=== PATIENT | male | born 1985 | race Caucasian/White ===

== ENCOUNTER 2023-11-26 11:06 | Emergency (ER) | payer OTHER, SELFPAY ==
[2023-11-26 11:07] VITALS: BP 159/107
--- NOTE | 2023-11-26 11:37 | ED.GENMED ---
History of Present Illness
General
Chief Complaint: Abdominal Pain
Time Seen by Provider: 11/26/23 11:15
Travel History
Have you had any contact with someone who has COVID-19?: No
Do you have any symptoms of coronavirus? Fever > 100 degrees, chills, cough, shortness of breath, sore throat, loss of taste or smell, muscle aches, or headache?: No
History of Present Illness
History of Present Illness:
37 yo male w/ hx of anxiety and OCD presents to the Emergency Department for evaluation of generalized abd pain x 3 days. Reports waxing and waning pain, no obvious provoking/palliating factors. Location of pain varies. Poor appetite for 2-3 days.
No fevers, chills, sweats. Did have 'dry heaves' this AM. Notes that due to a MSK hip injury, he had been taking 650mg asa 3-4 times per day for 2-3 weeks. No hx of abd surgeries.
Review of Systems
Review of Systems
Allergies reviewed?: Yes
All Other Systems: ROS reviewed and negative except as documented in HPI and ROS
Phy Exam
Physical Exam
Physical Exam:
GEN: Well appearing, NAD, WDWN
Eyes: PERRLA, EOMs intact, no scleral icterus
HENT: NCAT, oral mucosa moist
Lungs: CTAB, no wheezes, rales, rhonchi, normal chest wall excursion
Cardiac: RRR, no M/R/G, no peripheral edema. Radial pulses 2+ bilat
Abdomen: S, NT, ND, NABS, no masses or hepatosplenomegaly
Neuro: AO x 3
MSK: No gross deformity or ecchymosis. No edema. No digital clubbing
Skin: No rashes, petechiae. Normal color, no pallor or jaundice.
Psych: Calm, cooperative, proper hygiene
Course
Orders/Labs/Results
Orders:
Orders
11/26/23 11:40
Famotidine [Pepcid] 20 mg IV NOW STA
Pantoprazole [Protonix IV] 40 mg IV NOW STA
11/26/23 11:55
Complete Blood Count/With Diff Urgent
Comprehensive Metabolic Panel Urgent
Lipase Urgent
11/26/23 12:56
US Abdomen Complete/Upper Urgent
Comment:
Reason For Exam: upper abd pain
11/26/23 14:35
Urinalysis Reflex To Culture Urgent
Date Specimen was Collected: 11/26/23
Time Specimen was Collected: 14:34
Urine Microscopic Reflex Cult Urgent
Urine Culture Urgent
AVRIL Source: U
Specimen Description:
Date Specimen was Collected: 11/26/23
Time Specimen was Collected: 14:34
11/26/23 14:43
0.9% Sodium Chloride 1000 ml [Nss] 1,000 ml IV BOLUS
Abnormal Lab Results
11/26/23 11/26/23
11:55 14:35
MCH 31.1 H pg
(27.0-31.0)
Absolute Monos (auto) 1.1 H 10^3/uL
(0.1-0.6)
Monocytes % 11.1 H %
(1.7-9.3)
Urine Ketones 3+ A
(Negative)
Urine Bilirubin 1+ A
(Negative)
Leukocyte Esterase Rfl Trace A
(Negative)
Urine Bacteria (Reflex) Moderate A
(Negative)
11/26/23 11:55
11/26/23 11:55
Vital Signs
Initial and Last Documented VS:
Initial Vital Signs
Temp Pulse Resp BP Pulse Ox
100.3 F 91 18 159/107 98
11/26/23 11:07 11/26/23 11:07 11/26/23 11:07 11/26/23 11:07 11/26/23 11:07
Last Documented Vital Signs
Temp Pulse Resp BP Pulse Ox
100.2 F 74 18 159/107 97
11/26/23 14:50 11/26/23 14:50 11/26/23 14:50 11/26/23 11:07 11/26/23 14:50
MDM/Problems Addressed
MDM/Problems Addressed:
The true cause of the pt's symptoms is not clear. High suspicion for gastritis/PUD on the basis of heavy asa use recently, however this would not explain the mild L hydronephrosis or bacteruia. He is noted to have low grade fever without
leukocytosis. No focal RLQ tenderness concerning for appendicitis. Will treat empirically w/ a course of abx, PPI for presumed gastritis. ED return parameters discussed
*Critical Care Note
Total Time (30-74mins, 75-104mins- exclusive of procedures): Not Applicable
ED Attending Note
-
Portions of this chart may have been created with voice recognition software.� Occasional wrong word or��sound alike� substitutions may have occurred due to the inherent limitations of voice recognition software.
Discharge Plan
Departure
Patient Disposition: Home (Routine Discharge)
Date of Disposition: 11/26/23
Time of Disposition: 15:17
Patient with high blood pressure during this ER visit?: No
Discharge Problem:
Bacteriuria with pyuria, Hydronephrosis, left, Gastritis
Instructions: Gastritis (DC)
Prescriptions:
New
sulfamethoxazole-trimethoprim [Bactrim DS] 800-160 mg tablet
1 tab PO BID 7 Days Qty: 14 0RF
pantoprazole [Protonix] 40 mg tablet,delayed release (DR/EC)
40 mg PO DAILY Qty: 14 0RF
Referrals:
NONE,* [Family Provider] -
Interventions
Interventions:
*Risk Screen - Suicide Last Done: 11/26/23 15:32
*General Assessment Last Done: 11/26/23 15:32
*Neglect/Abuse Screening Last Done: 11/26/23 15:32
*ED COVID-19 Vaccine History Last Done: 11/26/23 11:07
NQ-Vigclp-Taztbwqgtx Assessment Last Done: 11/26/23 14:48
Discharge Date and Time
Print Language: IRISH
[2023-11-26] MEDS: PROTONIX IV 40 MG IV (11:55)
[2023-11-26] MEDS: PEPCID 20 MG IV (11:55)
[2023-11-26 12:14] LABS: % Basophils 0.4 % (0-2); % Immature Granulocytes 0.2 % (0-0.5); % Monocytes 11.1 % (1.7-9.3); % Neutrophils 65.3 % (42.2-75.2); Absolute Eosinophils 0.1 10^3/uL (0-0.7); Absolute Lymphocytes 2.1 10^3/uL (1.2-3.4); Absolute Monocytes 1.1 10^3/uL (0.1-0.6); Absolute Neutrophils 6.2 10^3/uL (1.4-6.5); Hematocrit 44.6 % (39.0-52.0); Hemoglobin 15.7 g/dL (13.0-18.0); Mean Corp Hgb Conc. 35.2 g/dL (33.0-37.0); Mean Corpuscular Hgb 31.1 pg (27.0-31.0); Mean Corpuscular Volume 88.3 fL (80.0-94.0); Nucleated Red Blood Cells % 0 % (-); Platelet Count 212 10^3/uL (130-400); Red Blood Cell Count 5.05 10^6/uL (4.70-6.10); Red Cell Dist. Width 12.1 % (11.5-14.5); White Blood Cell Count 9.6 10^3/uL (4.8-10.8)
[2023-11-26 12:29] LABS: ALT (SGPT) 31 U/L (0-50); AST (SGOT) 26 U/L (17-59); Alkaline Phosphatase 70 U/L (38-126); Blood Urea Nitrogen 9 mg/dl (9-20); Calcium 9.1 mg/dl (8.4-10.2); Carbon Dioxide 27 mmol/L (22-30); Chloride 103 mmol/L (98-107); Glucose 97 mg/dl (70-99); Lipase 43 U/L (23-300); Potassium 3.8 mmol/L (3.5-5.1); Sodium 138 mmol/L (135-145); Total Bilirubin 0.7 mg/dl (0.2-1.3); Total Protein 6.9 g/dl (6.3-8.2); eGFR > 60.00
[2023-11-26] MEDS: NSS 1000 IV (14:47)
[2023-11-26 14:53] LABS: Urine Albumin Negative (Neg - Trace); Urine Bilirubin 1+ (Negative); Urine Character Clear (Clear); Urine Color Yellow; Urine Glucose Negative (Negative); Urine Ketone 3+ (Negative); Urine Leukocyte Trace (Negative); Urine Nitrite Negative (Negative); Urine Occult Blood Negative (Negative); Urine Urobilinogen Negative (Neg - 1+)
[2023-11-26 15:13] LABS: Urine Bacteria Moderate (Negative); Urine Mucus Many; Urine Red Blood Cell 0-2 /HPF (0-2)
== END 2023-11-26 17:31 | disposition home or self-care (01) ==
LOC: EMR 11:06
PROVIDERS: Physician Assistant; EMERGENCY PHYSICIAN Emergency Medicine
DX: R82.81 Pyuria (principal); R82.71 Bacteriuria; N13.30 Unspecified hydronephrosis; K29.00 Acute gastritis without bleeding; R11.0 Nausea; F42.9 Obsessive-compulsive disorder, unspecified; F41.9 Anxiety disorder, unspecified
CPT/HCPCS: 99284; 96374; 96375; 96361; 76700; 80053; 81003; 81015; 83690; 85025; 87086

== ENCOUNTER 2024-06-08 16:35 | Emergency (ER) | payer OTHER, SELFPAY ==
[2024-06-08 16:45] VITALS: BP 158/112
--- NOTE | 2024-06-08 19:44 | ED.GENMED ---
History of Present Illness
General
Chief Complaint: Musculo-Skeletal Complaint
Time Seen by Provider: 06/08/24 19:30
History of Present Illness
History of Present Illness:
Patient is a 38-year-old male who is otherwise healthy presenting to the emergency department left hip pain. Patient states that back in October he felt like he pulled a muscle in his left hip and has been having occasional issues with limping. About
5 days ago he slipped on ice. He said during that event his left leg was stretched and he was able to pull his leg back in. He did not fall. He states that since then has been having pain to the left hip. It is mostly noticeable when he is going
from sitting to standing as well as when externally rotates his hip. He denies any swelling or bruising rash or redness or fevers or chills. He states that there is no back pain. The pain will occasionally radiate down to his knee. He has not
tried any medications but has tried icing it and placing heating pad on it.
Phy Exam
Physical Exam
Physical Exam:
GENERAL: in no acute distress
HEENT: normocephalic, extraocular movements intact, moist oral mucosa
NECK: normal inspection
RESPIRATORY: no respiratory distress, clear to auscultation bilaterally
CARDIOVASCULAR: regular rate and rhythm
ABDOMEN/: soft, non-distended, non-tender to palpation, no rebound or guarding
EXTREMITIES: non-tender, no edema/swelling
NEUROLOGIC: awake and alert, moves all extremities
SKIN: warm
Course
Orders/Labs/Results
Orders:
Orders
06/08/24 16:48
Hip, Left 2-3 Views [CR Hip - LT w/wo Pel 2-3 Vw*] Urgent
Comment:
Reason For Exam: fall
Include a pelvis x-ray?: Yes
06/08/24 19:43
Acetaminophen [Tylenol] 1,000 mg PO NOW STA
Ketorolac [Toradol] 15 mg IM NOW STA
06/08/24 19:57
Lidocaine [Lidocaine 4% Patch] 1 patch .ROUTE .STK-MED ONE
06/09/24 08:00
Lidocaine [Lidocaine 4% Patch] 1 patch TOPICAL DAILY
Apply Lidocaine patch(s) to:: left hip
Vital Signs
Initial and Last Documented VS:
Initial Vital Signs
Temp Pulse Resp BP Pulse Ox
98 F 95 20 158/112 99
06/08/24 16:45 06/08/24 16:45 06/08/24 16:45 06/08/24 16:45 06/08/24 16:45
Last Documented Vital Signs
Temp Pulse Resp BP Pulse Ox
98 F 95 20 158/112 99
06/08/24 16:45 06/08/24 16:45 06/08/24 16:45 06/08/24 16:45 06/08/24 16:45
MDM/Problems Addressed
Differential Diagnosis Includes:
38-year-old man presenting to the emergency department with left hip pain and difficulty with weightbearing. On exam patient with full range of motion and strength. He does have some limited with external rotation of the left hip. No obvious
swelling or tenderness. Differential consists of MSK pain versus fracture though less likely. Will pain control. Will obtain x-ray. Discussed with patient on the importance of following up with orthopedic and possible MRI outpatient
*Critical Care Note
Total Time (30-74mins, 75-104mins- exclusive of procedures): Not Applicable
Update Note
Update Note:
On reevaluation has improved after the medication. X-ray per my interpretation with no bony fracture. Will discharge at this time and give patient orthopedic follow-up.
ED Attending Note
-
Portions of this chart may have been created with voice recognition software.� Occasional wrong word or��sound alike� substitutions may have occurred due to the inherent limitations of voice recognition software.
Discharge Plan
Departure
Patient Disposition: Home (Routine Discharge)
Date of Disposition: 06/08/24
Time of Disposition: 21:46
Patient with high blood pressure during this ER visit?: No
Discharge Problem:
Hip pain
Instructions: Hip Pain ED
Prescriptions:
No Action
sulfamethoxazole-trimethoprim [Bactrim DS] 800-160 mg tablet
1 tab PO BID 7 Days Qty: 14 0RF
pantoprazole [Protonix] 40 mg tablet,delayed release (DR/EC)
40 mg PO DAILY Qty: 14 0RF
Referrals:
Gurpreet Gaytan MD [Active] -
UNKNOWN - PT NOT,INTERVIEWE [Family Provider] -
Activity Restrictions/Additional Instructions:
We discussed pain medications:
You may take Tylenol (also known as Acetaminophen) for pain.
You may take 1000mg Acetaminophen (two extra-strength tablets) per dose, which should be taken every 6-8 hours, or three times a day.
If you have normal strength Tylenol, you can take 650mg (two normal strength tablets) every 4-6 hours.
Do not take more than 3,000mg (3 grams) of Acetaminophen per day.
Never take more than as directed on the bottle.
You may also take Ibuprofen (also known as Motrin or Advil). If taking with Tylenol, alternate and take between dosing.
You may take 400-800mg of Ibuprofen per dose, which should be taken every 6-8 hours.
Do not take more than 3200mg (3.2 grams) of Ibuprofen per day.
You may also benefit from using a Lidocaine Patch (also known as 'Salon Pas'), which is an over the counter pain patch.
Place it just over the site of pain, avoiding areas of skin damage, as per instructions on the patch.
Please see your primary care doctor soon to be reevaluated and to make sure that you are improving. We have included information about establishing care with a doctor if you do not have one.
We talked about your evaluation, diagnosis, and treatment in the Emergency Department today. You must see your primary doctor for recheck and followup care in order to evaluate your progress or any changes. Have your doctor recheck the test
results/information from the ED visit. As discussed, RETURN to the ED if you develop worsening/changing symptoms or have no improvement in symptoms after the treatments provided.
Interventions
Interventions:
*Risk Screen - Suicide Last Done: 06/08/24 16:45
*General Assessment Last Done: 06/08/24 16:45
*Neglect/Abuse Screening Last Done: 06/08/24 16:45
*ED COVID-19 Vaccine History Last Done: 06/08/24 17:43
ED-Musculoskeletal Assessment Last Done: 06/08/24 17:43
Discharge Date and Time
Print Language: [id number]
[2024-06-08] MEDS: TORADOL 15 MG IM (19:57)
[2024-06-08] MEDS: TYLENOL 1000 MG PO (19:58)
[2024-06-08] MEDS: LIDOCAINE 4% PATCH 1 PATCH TOPICAL (20:00)
[2024-06-08 22:42] VITALS: BP 145/92
== END 2024-06-08 22:44 | disposition home or self-care (01) ==
LOC: EMR 16:35
PROVIDERS: EMERGENCY PHYSICIAN Student in an Organized Health Care Education/Training Program
DX: M25.552 Pain in left hip (principal); W00.0XXA Fall on same level due to ice and snow, initial encounter
CPT/HCPCS: 99283; 73502